=== PATIENT | male | born 1975 | race African-American/Black ===

== ENCOUNTER 2022-07-21 12:31 | Inpatient (IN) ==
[2022-07-21] MEDS ORDERED: SODIUM CHLORIDE 0.9% 1,000 ML IV STA (14:47)
[2022-07-21] MEDS ORDERED: PIPERACILLIN/TAZOBACTAM 3,375 MG in SODIUM CHLORIDE 0.9% 100 ML IV STA (14:48)
[2022-07-21 15:08] LABS: Basophils # 0.2 10*3/uL (0.0-0.2); Basophils % 0.5 % (0.0-0.8); Eosinophils # 0.4 10*3/uL (0.0-0.87); Eosinophils % 1.3 % (0.00-10.9); Hematocrit 38.6 VOL% (42.0-52.0); Immature Granulocytes % 3.8 %; Immature Granulocytes Absolute 1.09 #; Lymphocytes # 2.1 10*3/uL (1.4-4.0); Lymphocytes % 7.4 % (21.2-54.2); Mean Corpuscular HGB Conc 31.1 GM/DL (32-36); Mean Corpuscular Volume 88.5 FL (87-102); Mean Platelet Volume 10.6 FL (9.6-12.0); Monocytes # 2.4 10*3/uL (0.11-0.8); Monocytes % 8.4 % (1.7-12.7); Neutrophils % 78.6 % (38.7-73.9); Platelet Count 512 T/CUMM (130-400); Red Blood Count 4.36 MC/CUMM (3.8-5.5); Red Cell Distribution Width 14.4 % (9.3-17.3); White Blood Count 28.3 T/CUMM (4-12)
[2022-07-21 15:31] LABS: Band Neutrophils 3 % (0-10); Lymphocytes 7 % (20-55); Myelocytes 1 %; Total Cells Counted 100
[2022-07-21 15:32] LABS: Albumin 1.9 G/DL (3.4-5.0); Bilirubin,Total 0.9 MG/DL (0.20-1.00); Calcium 8.9 MG/DL (8.5-10.1); Osmolality,Calculated 275.1 MOS/KG (273-304); Platelet Estimate Increased; Potassium 3.5 MMOL/L (3.5-5.1); Total Protein 8.7 G/DL (6.4-8.2)
[2022-07-21] MEDS ORDERED: HYDROmorphone 1 MG/1 ML SYRINGE IV PRN (15:37)
[2022-07-21] MEDS ORDERED: ACETAMINOPHEN 325 MG TABLET PO PRN (15:37)
[2022-07-21] MEDS ORDERED: BISACODYL 5 MG TABLET PO PRN (15:37)
[2022-07-21] MEDS ORDERED: ONDANSETRON 4 MG/2 ML VIAL IV PRN ×2 (15:37→18:07)
[2022-07-21] MEDS ORDERED: DEXTROSE 10% 250 ML BAG IV PRN (15:40)
[2022-07-21] MEDS ORDERED: hydrALAZINE 20 MG/1 ML VIAL IV PRN (15:40)
[2022-07-21] MEDS ORDERED: GLUCAGON 1 MG VIAL IM PRN (15:40)
[2022-07-21] MEDS ORDERED: LIDOCAINE 2% 5 ML VIAL ONE (15:45)
[2022-07-21] MEDS ORDERED: propofoL 200 MG/20 ML VIAL IV ONE (15:45)
[2022-07-21] MEDS ORDERED: fentaNYL 100 MCG/2 ML VIAL ONE ×2 (15:46→17:33)
[2022-07-21] MEDS ORDERED: MIDAZOLAM 2 MG/2 ML VIAL ONE (15:46)
[2022-07-21] MEDS ORDERED: KETOROLAC 30 MG/1 ML VIAL IV PRN (15:53)
[2022-07-21] MEDS ORDERED: VANCOMYCIN INJ 1,500 MG in SODIUM CHLORIDE 0.9% 500 ML IV ONE (16:30)
[2022-07-21] MEDS ORDERED: ONDANSETRON 4 MG/2 ML VIAL ONE (17:05)
[2022-07-21] MEDS ORDERED: LACTATED RINGERS 1,000 ML IV ONE (17:34)
[2022-07-21] MEDS ORDERED: PHENYLEPHRINE 1 MG/10 ML SYRINGE IV ONE (17:45)
[2022-07-21] MEDS: HYDROmorphone 1 MG/1 ML SYRINGE IV PRN ×4 (18:15→18:41)
[2022-07-21] MEDS: LACTATED RINGERS 1,000 ML IV SCH (21:13)
[2022-07-21] MEDS: PIPERACILLIN/TAZOBACTAM 3,375 MG in SODIUM CHLORIDE 0.9% 100 ML IV SCH (21:13)
[2022-07-21] MEDS: INSULIN LISPRO 100 UNIT/ML SUBCUT SCH (21:57)
[2022-07-22] MEDS: INSULIN LISPRO 100 UNIT/ML SUBCUT SCH ×4 (00:14→19:42)
[2022-07-22] MEDS: LACTATED RINGERS 1,000 ML IV SCH ×3 (00:14→17:48)
[2022-07-22] MEDS: HYDROmorphone 1 MG/1 ML SYRINGE IV PRN ×2 (04:33→08:01)
[2022-07-22] MEDS: PIPERACILLIN/TAZOBACTAM 3,375 MG in SODIUM CHLORIDE 0.9% 100 ML IV SCH ×3 (04:33→22:10)
[2022-07-22 05:32] LABS: Basophils # 0.1 10*3/uL (0.0-0.2); Basophils % 0.4 % (0.0-0.8); Eosinophils # 0.5 10*3/uL (0.0-0.87); Eosinophils % 2.1 % (0.00-10.9); Hematocrit 32.1 VOL% (42.0-52.0); Hemoglobin 10.3 GM/DL (14.0-18.0); Immature Granulocytes % 5.1 %; Immature Granulocytes Absolute 1.19 #; Lymphocytes # 2.2 10*3/uL (1.4-4.0); Lymphocytes % 9.4 % (21.2-54.2); Mean Corpuscular HGB Conc 32.1 GM/DL (32-36); Mean Corpuscular Volume 86.8 FL (87-102); Mean Platelet Volume 10.5 FL (9.6-12.0); Monocytes # 1.9 10*3/uL (0.11-0.8); Monocytes % 7.9 % (1.7-12.7); Neutrophils % 75.1 % (38.7-73.9); Platelet Count 477 T/CUMM (130-400); Red Cell Distribution Width 14.3 % (9.3-17.3); White Blood Count 23.5 T/CUMM (4-12)
[2022-07-22 05:52] LABS: Calcium 8.1 MG/DL (8.5-10.1); Osmolality,Calculated 272.1 MOS/KG (273-304); Potassium 3.7 MMOL/L (3.5-5.1)
[2022-07-22 06:06] LABS: Eosinophils 1 % (0-10); Lymphocytes 5 % (20-55); Platelet Estimate Normal; Total Cells Counted 100
[2022-07-22] MEDS: VANCOMYCIN INJ 1,500 MG in SODIUM CHLORIDE 0.9% 500 ML IV SCH ×2 (09:35→20:13)
[2022-07-22] MEDS: PANTOPRAZOLE 40 MG TABLET PO SCH (09:35)
[2022-07-22] MEDS: SODIUM HYPOCHLORITE 0.25% IRRIG 473 ML BOTTLE TOP SCH (10:20)
[2022-07-23] MEDS: INSULIN LISPRO 100 UNIT/ML SUBCUT SCH ×4 (00:52→20:14)
[2022-07-23] MEDS: LACTATED RINGERS 1,000 ML IV SCH ×4 (01:15→18:41)
[2022-07-23] MEDS: PIPERACILLIN/TAZOBACTAM 3,375 MG in SODIUM CHLORIDE 0.9% 100 ML IV SCH ×3 (05:05→20:12)
[2022-07-23 05:24] LABS: Basophils # 0.1 10*3/uL (0.0-0.2); Basophils % 0.3 % (0.0-0.8); Eosinophils # 0.7 10*3/uL (0.0-0.87); Eosinophils % 3.4 % (0.00-10.9); Hemoglobin 9.2 GM/DL (14.0-18.0); Immature Granulocytes % 6.1 %; Immature Granulocytes Absolute 1.32 #; Lymphocytes # 2.6 10*3/uL (1.4-4.0); Lymphocytes % 12.2 % (21.2-54.2); Mean Corpuscular HGB Conc 31.7 GM/DL (32-36); Mean Corpuscular Volume 87.3 FL (87-102); Mean Platelet Volume 10.5 FL (9.6-12.0); Monocytes # 1.5 10*3/uL (0.11-0.8); Monocytes % 7.2 % (1.7-12.7); Neutrophils % 70.8 % (38.7-73.9); Platelet Count 458 T/CUMM (130-400); Red Blood Count 3.32 MC/CUMM (3.8-5.5); Red Cell Distribution Width 14.3 % (9.3-17.3); White Blood Count 21.5 T/CUMM (4-12)
[2022-07-23 06:09] LABS: Eosinophils 5 % (0-10); Lymphocytes 8 % (20-55); Metamyelocytes 1 %; Total Cells Counted 100
[2022-07-23 06:10] LABS: Platelet Estimate Increased
[2022-07-23] MEDS: PANTOPRAZOLE 40 MG TABLET PO SCH (08:57)
[2022-07-23] MEDS: HYDROmorphone 1 MG/1 ML SYRINGE IV PRN (09:06)
[2022-07-23] MEDS: SODIUM HYPOCHLORITE 0.25% IRRIG 473 ML BOTTLE TOP SCH (11:05)
[2022-07-23] MEDS: VANCOMYCIN INJ 1,500 MG in SODIUM CHLORIDE 0.9% 500 ML IV SCH ×2 (18:41→18:46)
[2022-07-24] MEDS: INSULIN LISPRO 100 UNIT/ML SUBCUT SCH ×4 (00:28→18:20)
[2022-07-24] MEDS: VANCOMYCIN INJ 1,500 MG in SODIUM CHLORIDE 0.9% 500 ML IV SCH ×2 (00:47→13:48)
[2022-07-24] MEDS: LACTATED RINGERS 1,000 ML IV SCH ×3 (00:47→17:12)
[2022-07-24] MEDS: PIPERACILLIN/TAZOBACTAM 3,375 MG in SODIUM CHLORIDE 0.9% 100 ML IV SCH ×3 (05:02→23:18)
[2022-07-24 07:06] LABS: Basophils % 0.3 % (0.0-0.8); Eosinophils # 0.6 10*3/uL (0.0-0.87); Eosinophils % 3.7 % (0.00-10.9); Hematocrit 30.3 VOL% (42.0-52.0); Hemoglobin 9.7 GM/DL (14.0-18.0); Immature Granulocytes % 5.2 %; Immature Granulocytes Absolute 0.83 #; Lymphocytes # 2.1 10*3/uL (1.4-4.0); Lymphocytes % 13.3 % (21.2-54.2); Mean Corpuscular Volume 87.6 FL (87-102); Mean Platelet Volume 10.3 FL (9.6-12.0); Monocytes # 0.9 10*3/uL (0.11-0.8); Monocytes % 5.6 % (1.7-12.7); Neutrophils % 71.9 % (38.7-73.9); Platelet Count 424 T/CUMM (130-400); Red Blood Count 3.46 MC/CUMM (3.8-5.5); Red Cell Distribution Width 14.4 % (9.3-17.3); White Blood Count 15.8 T/CUMM (4-12)
[2022-07-24 07:24] LABS: Band Neutrophils 2 % (0-10); Eosinophils 2 % (0-10); Hypochromia Slight; Lymphocytes 8 % (20-55); Microcytosis Slight; Platelet Estimate Adequate; Total Cells Counted 100
[2022-07-24] MEDS ORDERED: BUPIVACAINE MPF 0.25% 10 ML VIAL ONE (09:08)
[2022-07-24] MEDS ORDERED: LIDOCAINE 2%/EPI 20 ML VIAL ONE (09:08)
[2022-07-24] MEDS ORDERED: propofoL 200 MG/20 ML VIAL IV ONE (09:16)
[2022-07-24] MEDS ORDERED: SEVOFLURANE 1 UNIT/15 MINUTE INH ONE (09:16)
[2022-07-24] MEDS ORDERED: fentaNYL 100 MCG/2 ML VIAL ONE (09:16)
[2022-07-24] MEDS ORDERED: ONDANSETRON 4 MG/2 ML VIAL ONE (09:16)
[2022-07-24] MEDS ORDERED: LIDOCAINE 2% 5 ML VIAL ONE (09:16)
[2022-07-24] MEDS ORDERED: MIDAZOLAM 2 MG/2 ML VIAL ONE (09:16)
[2022-07-24] MEDS ORDERED: LACTATED RINGERS 1,000 ML IV SCH (10:00)
[2022-07-24] MEDS ORDERED: ALBUTEROL 2.5 MG/3 ML NEB RESP TX ONE (10:45)
[2022-07-24] MEDS ORDERED: ONDANSETRON 4 MG/2 ML VIAL IV PRN (11:04)
[2022-07-24] MEDS: HYDROmorphone 1 MG/1 ML SYRINGE IV PRN ×4 (11:05→11:33)
[2022-07-24] MEDS: SODIUM HYPOCHLORITE 0.25% IRRIG 473 ML BOTTLE TOP SCH (11:21)
[2022-07-24] MEDS: PANTOPRAZOLE 40 MG TABLET PO SCH (16:14)
[2022-07-25] MEDS: INSULIN LISPRO 100 UNIT/ML SUBCUT SCH ×3 (04:23→12:00)
[2022-07-25] MEDS: PIPERACILLIN/TAZOBACTAM 3,375 MG in SODIUM CHLORIDE 0.9% 100 ML IV SCH (05:59)
[2022-07-25 08:46] VITALS: BP 127/84
[2022-07-25] MEDS: PANTOPRAZOLE 40 MG TABLET PO SCH (08:57)
[2022-07-25] MEDS: LACTATED RINGERS 1,000 ML IV SCH (11:13)
[2022-07-25] MEDS: SODIUM HYPOCHLORITE 0.25% IRRIG 473 ML BOTTLE TOP SCH (11:14)
[2022-07-25] MEDS: HYDROmorphone 1 MG/1 ML SYRINGE IV PRN (11:31)
== END 2022-07-25 12:10 | disposition home health service (06) | DRG 264 ==
LOC: N.ED 12:31 → N.EDINP 15:37 → N.3E 16:35
PROVIDERS: ADMIT Surgery; ATTEND Surgery